=== PATIENT | male | born 1990 | race Two or more races ===

== ENCOUNTER 2018-09-15 02:55 | Emergency (ER) | payer MEDICAID, OTHER ==
[2018-09-15] MEDS: KETOROLAC 60 MG INJ IM (03:57)
== END 2018-09-15 05:17 | disposition home or self-care (01) ==
LOC: FTE 02:55
DX: S76.211A Strain of adductor muscle, fascia and tendon of right thigh, initial encounter (principal); X58.XXXA Exposure to other specified factors, initial encounter; Y92.9 Unspecified place or not applicable; Z87.891 Personal history of nicotine dependence
CPT/HCPCS: 73550; 96372; 99284-25

== ENCOUNTER 2019-02-10 08:50 | Emergency (ER) | payer MEDICAID ==
[2019-02-10 09:39] LABS: ADD MAN DIFF? NO
[2019-02-10 09:43] LABS: BASOPHIL # 0.1 10^3/ul (0.0-0.1); BASOPHILS % 0.4 % (0.0-2.0); EOSINOPHILS % 0.3 % (0.0-7.0); HEMATOCRIT 46.7 % (42.0-52.0); HEMOGLOBIN 15.5 g/dl (14.0-18.0); LYMPHOCYTES % 25.6 % (15.0-51.0); MEAN CORPUSCULAR HEMOGLOBIN 30.1 pg (29.0-33.0); MEAN CORPUSCULAR HGB CONC 33.2 g/dl (32.0-37.0); MEAN CORPUSCULAR VOLUME 90.7 fl (82.0-101.0); MEAN PLATELET VOLUME 9.6 fl (7.4-10.4); MONOCYTE # 0.8 10^3/ul (0.3-0.9); MONOCYTES % 6.9 % (0.0-11.0); NEUTROPHIL # 7.9 10^3/ul (1.6-7.5); NEUTROPHILS % 66.3 % (39.0-77.0); PLATELET COUNT 297 10^3/UL (140-415); RED BLOOD COUNT 5.15 10^6/ul (4.70-6.10); RED CELL DISTRIBUTION WIDTH 13.3 % (11.5-14.5)
[2019-02-10 09:43] LABS: WHITE BLOOD COUNT 11.9 10^3/ul (4.8-10.8)
[2019-02-10] MEDS: SOD CHLORIDE 0.9% 1,000 ML IV (10:02)
[2019-02-10 10:26] LABS: ANION GAP 12 (5-13); BLOOD UREA NITROGEN 15 mg/dl (7-20); CALCIUM 9.1 mg/dl (8.4-10.2); CARBON DIOXIDE 27 mmol/L (21-31); CHLORIDE 102 mmol/L (97-110); CREATININE 0.81 mg/dl (0.61-1.24); Estimated GFR > 60 mL/min (>60); GLUCOSE 153 mg/dl (70-220); POTASSIUM 4.8 mmol/L (3.5-5.1); SODIUM 141 mmol/L (135-144)
[2019-02-10 10:29] LABS: ETHANOL < 10.0 mg/dl (0-0)
== END 2019-02-10 13:29 | disposition home or self-care (01) ==
LOC: E/R 08:50
DX: F12.10 Cannabis abuse, uncomplicated (principal); R40.2142 Coma scale, eyes open, spontaneous, at arrival to emergency department; R40.2252 Coma scale, best verbal response, oriented, at arrival to emergency department; R40.2362 Coma scale, best motor response, obeys commands, at arrival to emergency department; R00.0 Tachycardia, unspecified; Z87.891 Personal history of nicotine dependence
CPT/HCPCS: 36415; 70450; 71045; 80048; 80307; 85025; 93005; 99285-25

== ENCOUNTER 2019-04-13 03:51 | Emergency (ER) | payer MEDICAID ==
[2019-04-13] MEDS: CEFTRIAXONE 1 GM INJ IM (04:24)
[2019-04-13] MEDS: KETOROLAC 60 MG INJ IM (04:25)
[2019-04-13 04:42] LABS: ADD MAN DIFF? NO
[2019-04-13 04:44] LABS: BASOPHILS % 0.2 % (0.0-2.0); EOSINOPHILS % 0.3 % (0.0-7.0); HEMATOCRIT 43.3 % (42.0-52.0); HEMOGLOBIN 14.2 g/dl (14.0-18.0); LYMPHOCYTES % 13.4 % (15.0-51.0); MEAN CORPUSCULAR HEMOGLOBIN 29.2 pg (29.0-33.0); MEAN CORPUSCULAR HGB CONC 32.8 g/dl (32.0-37.0); MEAN CORPUSCULAR VOLUME 89.1 fl (82.0-101.0); MEAN PLATELET VOLUME 9.8 fl (7.4-10.4); MONOCYTE # 1.3 10^3/ul (0.3-0.9); MONOCYTES % 8.7 % (0.0-11.0); NEUTROPHIL # 11.2 10^3/ul (1.6-7.5); NEUTROPHILS % 77.1 % (39.0-77.0); PLATELET COUNT 247 10^3/UL (140-415); RED BLOOD COUNT 4.86 10^6/ul (4.70-6.10)
[2019-04-13 04:44] LABS: WHITE BLOOD COUNT 14.5 10^3/ul (4.8-10.8)
== END 2019-04-13 05:37 | disposition home or self-care (01) ==
LOC: FTE 05:37
DX: L03.114 Cellulitis of left upper limb (principal); F17.210 Nicotine dependence, cigarettes, uncomplicated
CPT/HCPCS: 85025; 96372; 99284-25